=== PATIENT | female | born 1960 | race Caucasian/White ===

== ENCOUNTER 2021-02-07 14:09 | Outpatient (CLI) | payer BC | END 2021-02-07 14:10 | disposition home or self-care (01) | LOC: CSHMRI 14:09 | PROVIDERS: ATTEND Family Medicine | DX: M54.10 Radiculopathy, site unspecified (principal); M47.816 Spondylosis without myelopathy or radiculopathy, lumbar region; D25.9 Leiomyoma of uterus, unspecified; N94.9 Unspecified condition associated with female genital organs and menstrual cycle | CPT/HCPCS: 72148 ==